=== PATIENT | female | born 1975 | race African-American/Black ===

== ENCOUNTER 2020-09-23 17:38 | Emergency (ER) | payer OTHER ==
[~2020-09-23] VITALS: Ht 157.5 cm; Wt 77.1 kg
[2020-09-23] MEDS ORDERED: LEXAPRO 10 MG T10 M2 PO (17:46)
[2020-09-23] MEDS ORDERED: HYDROCHLOROTHIA25 M2 PO (17:46)
[2020-09-23] MEDS ORDERED: ASA81BEC PO (17:46)
[2020-09-23 18:07] LABS: ABSOLUTE NEUTROPHILS 4.8 thou/uL (1.4-8.2); BASOPHILS 0.5 % (0.0-2.0); HEMATOCRIT 46.4 % (37.0-47.0); HEMOGLOBIN 15.6 gm/dL (12.0-15.0); LYMPHOCYTES 30.9 % (24.0-44.0); MCH 30.5 pg (26.0-34.0); MCHC 33.6 g/dL (28.0-37.0); MCV 90.9 fL (80.0-100.0); MONOCYTES 6.2 % (1.0-8.0); PLATELET COUNT 423 thou/uL (150-400); POLYS 61.4 % (36.0-66.0); RDW 15.8 % (10.5-14.5); WBC 7.8 thou/uL (4.0-11.0)
[2020-09-23 18:16] LABS: ALBUMIN 3.9 g/dL (3.4-5.0); CALCIUM 10.2 mg/dL (8.5-10.1); MAGNESIUM 1.5 mg/dL (1.8-2.4); TOTAL BILIRUBIN 0.5 mg/dL (0.2-1.0); TOTAL PROTEIN 8.3 g/dL (6.4-8.2)
[2020-09-23 18:22] LABS: POTASSIUM 2.8 mmol/L (3.5-5.1)
[2020-09-23 21:07] VITALS: BP 117/76
--- NOTE | 2020-09-24 07:17 | EKG ---
[place] [address] [address] [facility] [place] [address] ELECTROCARDIOGRAM REPORT Name: KASSANDRA POPE Palmer [facility] [id number] Admission: 09/23/20 Attend Phys: Discharge: 09/23/20 Date of : [birth year] Report #: [id number] [facility] ED Test Date: 2020-09-23 Test Time: 17:56:23 Pat Name: KASSANDRA POPE Department: Room: Gender: F Resource Economist: shreyas : 1975 Requested By: Erasto Muhammad Order Number: [id number] MD: Juan Jose De Oliveira Measurements Intervals [place] Rate: 101 P: 88 [place]: 122 QRS: 32 QRSD: 101 T: -46 QT: 459 QTc: 596 Interpretive Statements Sinus tachycardia Biatrial enlargement Borderline T wave abnormalities Prolonged QT interval No previous ECG available for comparison Electronically Signed On 09-24-2020 7:16:50 SKULL GRINDER by Juan Jose De Oliveira [email or web address] <ELECTRONICALLY SIGNED> By: Juan Jose De Oliveira MD, [facility] 09/24/20 0716 1756 1756 Juan Jose De Oliveira MD, FACC /EPI
== END 2020-09-23 21:08 | disposition home or self-care (01) ==
LOC: ER 17:38
PROVIDERS: Emergency Medicine
DX: F10.10 Alcohol abuse, uncomplicated (principal); E87.6 Hypokalemia; F17.210 Nicotine dependence, cigarettes, uncomplicated; Z79.899 Other long term (current) drug therapy; Z79.82 Long term (current) use of aspirin; Y90.0 Blood alcohol level of less than 20 mg/100 ml

== ENCOUNTER 2020-10-04 18:28 | Emergency (ER) | payer OTHER ==
[~2020-10-04] VITALS: Ht 157.5 cm; Wt 72.6 kg
[~2020-10-04 18:28] MED LIST: ASA81BEC PO; HYDROCHLOROTHIA25 M2 PO; LEXAPRO 10 MG T10 M2 PO
[2020-10-04 19:36] LABS: ABSOLUTE NEUTROPHILS 5.1 thou/uL (1.4-8.2); BASOPHILS 0.8 % (0.0-2.0); EOSINOPHILS 0.4 % (0.0-3.0); HEMATOCRIT 44.9 % (37.0-47.0); HEMOGLOBIN 14.5 gm/dL (12.0-15.0); LYMPHOCYTES 34.1 % (24.0-44.0); MCH 29.9 pg (26.0-34.0); MCHC 32.4 g/dL (28.0-37.0); MCV 92.3 fL (80.0-100.0); MONOCYTES 7.7 % (1.0-8.0); PLATELET COUNT 403 thou/uL (150-400); RBC 4.87 mil/uL (4.20-5.00); WBC 8.9 thou/uL (4.0-11.0)
[2020-10-04 19:38] LABS: URINE BILIRUBIN NEGATIVE (Negative); URINE BLOOD 1+ (Negative); URINE CLARITY CLEAR; URINE COLOR YELLOW; URINE GLUCOSE-RANDOM* NEGATIVE (Negative); URINE KETONES TRACE (Negative); URINE LEUKOCYTES-REFLEX NEGATIVE (Negative); URINE NITRITE-REFLEX NEGATIVE (Negative); URINE PROTEIN (DIPSTICK) NEGATIVE (Negative); URINE SPECIFIC GRAVITY 1.015 (1.005-1.035); URINE UROBILINOGEN 0.2 E.U./dl (0.2-1.0)
[2020-10-04 19:48] LABS: AMP/METHAMP Negative (Negative); BARBITURATES Negative (Negative); BENZODIAZEPINES Negative (Negative); COCAINE Negative (Negative); METHADONE Negative (Negative); OPIATES Negative (Negative); PCP Negative (Negative)
[2020-10-04 19:59] LABS: SQUAMOUS 0-3 Few /LPF (0-3); URINE WBC-REFLEX None Seen /HPF (0-5)
[2020-10-04 20:00] LABS: BACTERIA-REFLEX None Seen /HPF (None Seen); CASTS None Seen /LPF (None Seen); CRYSTALS None Seen /LPF (None Seen); URINE RBC 0-2 Rare /HPF (0-2)
[2020-10-04 20:06] LABS: ALBUMIN 3.5 g/dL (3.4-5.0); CALCIUM 9.7 mg/dL (8.5-10.1); CREATININE 0.9 mg/dL (0.6-1.0); MAGNESIUM 1.6 mg/dL (1.8-2.4); TOTAL BILIRUBIN 0.2 mg/dL (0.2-1.0); TOTAL PROTEIN 7.8 g/dL (6.4-8.2)
[2020-10-04 20:09] LABS: POTASSIUM 2.7 mmol/L (3.5-5.1)
[2020-10-04 23:12] VITALS: BP 121/74
--- NOTE | 2020-10-05 15:23 | EKG ---
[address] [place] [address] ELECTROCARDIOGRAM REPORT Name: KASSANDRA POPE Palmer Room #: [facility]#: [id number] Admission: 10/04/20 Attend Phys: Discharge: 10/04/20 Date of : [birth year] Report #: [id number] [facility] ED Test Date: 2020-10-04 Test Time: 20:42:53 Pat Name: KASSANDRA POPE Department: Room: Gender: F Superintendent Sanitation: KESHIA : 1975 Requested By: Erasto Muhammad Order Number: [id number] MD: Juan Jose De Oliveira Measurements Intervals [place] Rate: 99 P: 81 [place]: 132 QRS: 28 QRSD: 72 T: 26 QT: 365 QTc: 469 Interpretive Statements Sinus rhythm Probable left atrial enlargement Baseline wander in lead(s) V2 Compared to ECG 09/23/2020 17:56:23 Sinus tachycardia no longer present T-wave abnormality no longer present Prolonged QT interval no longer present Electronically Signed On 10-05-2020 15:23:02 STEAM STATION SUPERVISOR by Juan Jose De Oliveira [email or web address] <ELECTRONICALLY SIGNED> By: Juan Jose De Oliveira MD, [facility] 10/05/20 1523 41 41 Juan Jose De Oliveira MD, [facility] /EPI
== END 2020-10-04 23:00 | disposition home or self-care (01) ==
LOC: ER 18:28
PROVIDERS: Emergency Medicine
DX: F10.139 Alcohol abuse with withdrawal, unspecified (principal); E87.6 Hypokalemia; E83.42 Hypomagnesemia; I10 Essential (primary) hypertension; F41.9 Anxiety disorder, unspecified; F17.210 Nicotine dependence, cigarettes, uncomplicated; Z79.899 Other long term (current) drug therapy; Z79.82 Long term (current) use of aspirin; Y90.0 Blood alcohol level of less than 20 mg/100 ml

== ENCOUNTER 2020-10-14 11:21 | Emergency (ER) | payer OTHER ==
[~2020-10-14] VITALS: Ht 157.5 cm; Wt 72.1 kg
[2020-10-14] MEDS ORDERED: AMLODIPINE BESY10 MG PO (11:34)
[2020-10-14] MEDS ORDERED: REVIA 50 MG TAB50 MG PO (11:35)
[2020-10-14] MEDS ORDERED: POTASSIUM20 PO (11:36)
[2020-10-14 11:57] LABS: ABSOLUTE NEUTROPHILS 3.7 thou/uL (1.4-8.2); BASOPHILS 1.4 % (0.0-2.0); EOSINOPHILS 1.3 % (0.0-3.0); HEMATOCRIT 41.9 % (37.0-47.0); HEMOGLOBIN 13.4 gm/dL (12.0-15.0); LYMPHOCYTES 35.5 % (24.0-44.0); MCH 29.2 pg (26.0-34.0); MCV 91.4 fL (80.0-100.0); MONOCYTES 8.8 % (1.0-8.0); PLATELET COUNT 386 thou/uL (150-400); RBC 4.59 mil/uL (4.20-5.00); RDW 15.3 % (10.5-14.5); WBC 6.9 thou/uL (4.0-11.0)
[2020-10-14 12:00] LABS: CALCIUM 9.3 mg/dL (8.5-10.1); CREATININE 0.6 mg/dL (0.6-1.0); POTASSIUM 3.7 mmol/L (3.5-5.1)
[2020-10-14 12:08] LABS: ALBUMIN 3.2 g/dL (3.4-5.0); TOTAL BILIRUBIN 0.2 mg/dL (0.2-1.0); TOTAL PROTEIN 7.3 g/dL (6.4-8.2)
[2020-10-14 13:48] VITALS: BP 121/89
== END 2020-10-14 14:04 | disposition home or self-care (01) ==
LOC: ER 11:21
PROVIDERS: Emergency Medicine
DX: F10.20 Alcohol dependence, uncomplicated (principal); F41.9 Anxiety disorder, unspecified; E66.9 Obesity, unspecified; F17.210 Nicotine dependence, cigarettes, uncomplicated; Z79.899 Other long term (current) drug therapy; Z79.82 Long term (current) use of aspirin; Z68.29 Body mass index [BMI] 29.0-29.9, adult; Y90.0 Blood alcohol level of less than 20 mg/100 ml

== ENCOUNTER 2020-10-27 19:46 | Emergency (ER) | payer OTHER ==
[~2020-10-27] VITALS: Ht 157.5 cm; Wt 74.8 kg
[~2020-10-27 19:46] MED LIST changes: +AMLODIPINE BESY10 MG PO; +POTASSIUM20 PO; +REVIA 50 MG TAB50 MG PO
[2020-10-27] MEDS ORDERED: HYDROCHLOROTHIA25 M2 PO (20:18)
[2020-10-27 20:43] LABS: HEMATOCRIT 38.8 % (37.0-47.0); HEMOGLOBIN 13.4 gm/dL (12.0-15.0); MCH 30.7 pg (26.0-34.0); MCHC 34.5 g/dL (28.0-37.0); MCV 89.1 fL (80.0-100.0); RBC 4.35 mil/uL (4.20-5.00); RDW 14.9 % (10.5-14.5); WBC 7.1 thou/uL (4.0-11.0)
[2020-10-27 20:49] LABS: CALCIUM 8.7 mg/dL (8.5-10.1); CREATININE 0.7 mg/dL (0.6-1.0); POTASSIUM 3.9 mmol/L (3.5-5.1)
[2020-10-27 20:55] LABS: ALBUMIN 3.3 g/dL (3.4-5.0); MAGNESIUM 1.8 mg/dL (1.8-2.4); TOTAL BILIRUBIN 0.3 mg/dL (0.2-1.0); TOTAL PROTEIN 7.3 g/dL (6.4-8.2)
[2020-10-27 21:16] VITALS: BP 137/81
--- NOTE | 2020-10-28 07:26 | EKG ---
[place] [address] [facility] [place] [address] ELECTROCARDIOGRAM REPORT Name: KASSANDRA POPE Palmer Room #: [facility]#: [id number] Admission: 10/27/20 Attend Phys: Discharge: 10/27/20 Date of : [birth year] Report #: [id number] [facility] ED Test Date: 2020-10-27 Test Time: 20:00:53 Pat Name: KASSANDRA POPE Department: Room: Gender: F Maintenance Mechanic Millwright: leonides : 1975 Requested By: Beth Ramírez Order Number: [id number] MD: Juan Jose De Oliveira Measurements Intervals [place] Rate: 108 P: 79 [place]: 119 QRS: 54 QRSD: 70 T: -8 QT: 343 QTc: 460 Interpretive Statements Sinus tachycardia Ventricular premature complex Aberrant complex Right atrial enlargement Borderline T abnormalities, inferior leads Compared to ECG 10/04/2020 20:42:53 Ventricular premature complex(es) now present Aberrant conduction of supraventricular beat(s) now present T-wave abnormality now present Sinus rhythm no longer present Electronically Signed On 10-28-2020 7:26:10 AREA DIRECTOR by Juan Jose De Oliveira [email or web address] <ELECTRONICALLY SIGNED> By: Juan Jose De Oliveira MD, FACC 10/28/20 0726 99 99 Juan Jose De Oliveira MD, FAC /EPI
== END 2020-10-27 21:25 | disposition home or self-care (01) ==
LOC: ER 19:46
PROVIDERS: Physician Assistant
DX: F10.139 Alcohol abuse with withdrawal, unspecified (principal); F17.210 Nicotine dependence, cigarettes, uncomplicated; Z79.82 Long term (current) use of aspirin; Z79.899 Other long term (current) drug therapy; Y90.0 Blood alcohol level of less than 20 mg/100 ml

== ENCOUNTER 2020-11-28 22:52 | Emergency (ER) | payer OTHER ==
[~2020-11-28] VITALS: Ht 157.5 cm; Wt 74.8 kg
[2020-11-28 23:27] LABS: ABSOLUTE NEUTROPHILS 3.9 thou/uL (1.4-8.2); BASOPHILS 1.5 % (0.0-2.0); EOSINOPHILS 0.8 % (0.0-3.0); HEMOGLOBIN 13.6 gm/dL (12.0-15.0); LYMPHOCYTES 38.1 % (24.0-44.0); MCH 29.4 pg (26.0-34.0); MCHC 33.1 g/dL (28.0-37.0); MCV 88.8 fL (80.0-100.0); MONOCYTES 8.3 % (1.0-8.0); PLATELET COUNT 498 thou/uL (150-400); POLYS 51.3 % (36.0-66.0); RBC 4.62 mil/uL (4.20-5.00); RDW 15.1 % (10.5-14.5); WBC 7.7 thou/uL (4.0-11.0)
[2020-11-28 23:35] LABS: ANION GAP 10 mmol/L (7-16); BUN 9 mg/dL (7-18); CALCIUM 8.4 mg/dL (8.5-10.1); CHLORIDE 103 mmol/L (98-107); CO2 27 mmol/L (21-32); CREATININE 1.1 mg/dL (0.6-1.0); GLUCOSE 100 mg/dL (74-106); POTASSIUM 3.5 mmol/L (3.5-5.1); SODIUM 140 mmol/L (136-145)
[2020-11-28 23:45] LABS: ALBUMIN 3.2 g/dL (3.4-5.0); MAGNESIUM 1.6 mg/dL (1.8-2.4); SGOT 18 U/L (15-37); SGPT 19 U/L (30-65); TOTAL BILIRUBIN 0.3 mg/dL (0.2-1.0); TOTAL PROTEIN 7.3 g/dL (6.4-8.2); TROPONIN-I <0.06 ng/mL (<0.06)
[2020-11-29 05:04] VITALS: BP 127/84
--- NOTE | 2020-11-29 07:21 | EKG ---
[address] [place] [address] ELECTROCARDIOGRAM REPORT Name: KASSANDRA POPE Palmer Room #: [facility]#: [id number] Admission: 11/28/20 Attend Phys: Discharge: 11/29/20 Date of : [birth year] Report #: [id number] [facility] ED Test Date: 2020-11-28 Test Time: 23:03:49 Pat Name: KASSANDRA POPE Department: Room: Gender: F Director Of Development: [email or web address] : 1975 Requested By: Shelia Chappell Order Number: [id number] MD: Juan Jose De Oliveira Measurements Intervals [place] Rate: 97 P: 76 DE: 133 QRS: 33 QRSD: 68 T: 29 QT: 363 QTc: 461 Interpretive Statements Sinus rhythm Right atrial enlargement Compared to ECG 10/27/2020 20:00:53 Sinus tachycardia no longer present Ventricular premature complex(es) no longer present Aberrant conduction of supraventricular beat(s) no longer present T-wave abnormality no longer present Electronically Signed On 11-29-2020 7:21:21 CDT by Juan Jose De Oliveira [email or web address] <ELECTRONICALLY SIGNED> By: Juan Jose De Oliveira MD, FACC 11/29/20 0721 02 02 Juan Jose De Oliveira MD, FAC /EPI
== END 2020-11-29 05:06 | disposition home or self-care (01) ==
LOC: ER 22:52
PROVIDERS: Emergency Medicine
DX: R00.2 Palpitations (principal); E86.0 Dehydration; F10.10 Alcohol abuse, uncomplicated; F17.210 Nicotine dependence, cigarettes, uncomplicated; Z79.82 Long term (current) use of aspirin; Z79.899 Other long term (current) drug therapy; Y90.0 Blood alcohol level of less than 20 mg/100 ml

== ENCOUNTER 2020-12-15 06:40 | Emergency (ER) | payer OTHER ==
[~2020-12-15] VITALS: Ht 157.5 cm; Wt 76.2 kg
[2020-12-15 06:47] VITALS: BP 138/87
[2020-12-15] MEDS ORDERED: LEXAPRO20 MG PO (06:55)
== END 2020-12-15 07:46 | disposition home or self-care (01) ==
LOC: ER 06:40
DX: F41.9 Anxiety disorder, unspecified (principal); I10 Essential (primary) hypertension; F17.210 Nicotine dependence, cigarettes, uncomplicated; Z76.0 Encounter for issue of repeat prescription; Z79.899 Other long term (current) drug therapy

== ENCOUNTER 2020-12-29 22:57 | Emergency (ER) | payer OTHER ==
[~2020-12-29] VITALS: Ht 157.5 cm; Wt 76.2 kg
[~2020-12-29 22:57] MED LIST changes: +LEXAPRO20 MG PO
[2020-12-29 23:38] LABS: ABSOLUTE NEUTROPHILS 3.8 thou/uL (1.4-8.2); BASOPHILS 1.4 % (0.0-2.0); EOSINOPHILS 0.9 % (0.0-3.0); HEMATOCRIT 43.1 % (37.0-47.0); HEMOGLOBIN 14.9 gm/dL (12.0-15.0); LYMPHOCYTES 42.1 % (24.0-44.0); MCH 30.6 pg (26.0-34.0); MCHC 34.5 g/dL (28.0-37.0); MCV 88.6 fL (80.0-100.0); PLATELET COUNT 423 thou/uL (150-400); POLYS 48.6 % (36.0-66.0); RBC 4.87 mil/uL (4.20-5.00); RDW 15.2 % (10.5-14.5); WBC 7.9 thou/uL (4.0-11.0)
[2020-12-29 23:39] LABS: URINE BILIRUBIN NEGATIVE (Negative); URINE BLOOD 3+ (Negative); URINE CLARITY CLEAR; URINE COLOR YELLOW; URINE GLUCOSE-RANDOM* NEGATIVE (Negative); URINE KETONES 1+ (Negative); URINE LEUKOCYTES-REFLEX NEGATIVE (Negative); URINE NITRITE-REFLEX NEGATIVE (Negative); URINE PROTEIN (DIPSTICK) NEGATIVE (Negative); URINE SPECIFIC GRAVITY 1.025 (1.005-1.035)
[2020-12-29 23:41] LABS: CALCIUM 9.3 mg/dL (8.5-10.1); CREATININE 0.7 mg/dL (0.6-1.0); POTASSIUM 3.3 mmol/L (3.5-5.1)
[2020-12-29 23:48] LABS: ALBUMIN 3.5 g/dL (3.4-5.0); TOTAL BILIRUBIN 0.4 mg/dL (0.2-1.0); TOTAL PROTEIN 8.1 g/dL (6.4-8.2)
[2020-12-30 00:33] LABS: SQUAMOUS >10 Many /LPF (0-3); URINE RBC 3-10 Few /HPF (0-2); URINE WBC-REFLEX 0-5 Rare /HPF (0-5)
[2020-12-30 00:34] LABS: BACTERIA-REFLEX 1-9 Few /HPF (None Seen); CASTS None Seen /LPF (None Seen); CRYSTALS None Seen /LPF (None Seen); MUCUS 4-6 Moderate strn/LPF (None Seen)
[2020-12-30] MEDS ORDERED: ZOFRAN ODT4 MG PO (01:45)
[2020-12-30 01:59] VITALS: BP 141/68
--- NOTE | 2020-12-30 07:07 | EKG ---
[place] [address] [address] [facility] [place] [address] ELECTROCARDIOGRAM REPORT Name: KASSANDRA POPE Palmer Room #: [facility]#: [id number] Admission: 12/29/20 Attend Phys: Discharge: 12/30/20 Date of : [birth year] Report #: [id number] [facility] ED Test Date: 2020-12-29 Test Time: 23:18:54 Pat Name: KASSANDRA POPE Department: Room: Gender: F Inventory Worker: sourav : 1975 Requested By: Terrence Gorman Order Number: [id number] MD: Juan Jose De Oliveira Measurements Intervals [place] Rate: 85 P: 70 [place]: 122 QRS: 51 QRSD: 105 T: 52 QT: 381 QTc: 453 Interpretive Statements Sinus rhythm Biatrial enlargement Compared to ECG 11/28/2020 23:03:49 NO sifgnificant change Electronically Signed On 12-30-2020 7:07:15 CDT by Juan Jose De Oliveira [email or web address] <ELECTRONICALLY SIGNED> By: Juan Jose De Oliveira MD, [facility] 12/30/20 0707 2318 2318 Juan Jose De Oliveira MD, FACC /EPI
== END 2020-12-30 02:01 | disposition home or self-care (01) ==
LOC: ER 22:57
PROVIDERS: Emergency Medicine
DX: F10.239 Alcohol dependence with withdrawal, unspecified (principal); R11.2 Nausea with vomiting, unspecified; I10 Essential (primary) hypertension; F17.210 Nicotine dependence, cigarettes, uncomplicated; Z79.82 Long term (current) use of aspirin; Z79.899 Other long term (current) drug therapy; Y90.9 Presence of alcohol in blood, level not specified

== ENCOUNTER 2021-01-01 21:16 | Emergency (ER) | payer OTHER ==
[~2021-01-01] VITALS: Ht 157.5 cm; Wt 76.2 kg
[~2021-01-01 21:16] MED LIST changes: +ZOFRAN ODT4 MG PO
[2021-01-01 21:23] VITALS: BP 142/97
--- NOTE | 2021-01-04 09:20 | EKG ---
[place] [address] [facility] [place] [address] ELECTROCARDIOGRAM REPORT Name: CRISTELA POPE Palmer Room #: [facility]#: [id number] Admission: 01/01/21 Attend Phys: Discharge: 01/01/21 Date of : [birth year] Report #: [id number] [facility] ED Test Date: 2021-01-01 Test Time: 21:22:17 Pat Name: CRISTELA POPE Department: Room: Gender: F Gliding Pilot Instructor: maricel : 1975 Requested By: Cristela Solorzano Order Number: [id number] MD: Vince Garica Measurements Intervals [place] Rate: 104 P: 85 NE: 115 QRS: 47 QRSD: 66 T: 25 QT: 322 QTc: 424 Interpretive Statements Sinus tachycardia Biatrial enlargement Nonspecific ST segment abnormality Compared to ECG 12/29/2020 23:18:54 No significant change was found Electronically Signed On 01-04-2021 9:19:46 CDT by Vince Garcia [email or web address] <ELECTRONICALLY SIGNED> By: Vince Garcia MD, [facility] 01/04/21918 21 21 Vince Garcia MD, FACC /EPI
== END 2021-01-01 22:20 | disposition home or self-care (01) ==
LOC: ER 21:16
DX: F41.9 Anxiety disorder, unspecified (principal); Z76.0 Encounter for issue of repeat prescription; I10 Essential (primary) hypertension; F17.210 Nicotine dependence, cigarettes, uncomplicated; Z79.899 Other long term (current) drug therapy; Z79.82 Long term (current) use of aspirin

== ENCOUNTER 2021-01-06 14:43 | Emergency (ER) | payer OTHER ==
[2021-01-06 15:11] LABS: URINE BILIRUBIN NEGATIVE (Negative); URINE BLOOD 3+ (Negative); URINE CLARITY CLEAR; URINE COLOR YELLOW; URINE GLUCOSE-RANDOM* NEGATIVE (Negative); URINE KETONES NEGATIVE (Negative); URINE LEUKOCYTES-REFLEX TRACE (Negative); URINE NITRITE-REFLEX NEGATIVE (Negative); URINE PROTEIN (DIPSTICK) NEGATIVE (Negative); URINE SPECIFIC GRAVITY 1.025 (1.005-1.035)
[2021-01-06 15:17] LABS: ABSOLUTE NEUTROPHILS 2.9 thou/uL (1.4-8.2); BASOPHILS 1.2 % (0.0-2.0); EOSINOPHILS 0.5 % (0.0-3.0); HEMATOCRIT 41.5 % (37.0-47.0); LYMPHOCYTES 49.5 % (24.0-44.0); MCH 29.8 pg (26.0-34.0); MCHC 33.8 g/dL (28.0-37.0); MCV 88.1 fL (80.0-100.0); PLATELET COUNT 434 thou/uL (150-400); POLYS 39.8 % (36.0-66.0); RBC 4.71 mil/uL (4.20-5.00); RDW 15.6 % (10.5-14.5); WBC 7.4 thou/uL (4.0-11.0)
[2021-01-06 15:22] LABS: AMP/METHAMP Negative (Negative); BARBITURATES Negative (Negative); BENZODIAZEPINES Negative (Negative); COCAINE Negative (Negative); METHADONE Negative (Negative); OPIATES Negative (Negative); PCP Negative (Negative)
[2021-01-06 15:23] LABS: SQUAMOUS >10 Many /LPF (0-3)
[2021-01-06 15:24] LABS: BACTERIA-REFLEX 1-9 Few /HPF (None Seen); CASTS None Seen /LPF (None Seen); CRYSTALS None Seen /LPF (None Seen); URINE RBC 3-10 Few /HPF (0-2); URINE WBC-REFLEX 0-5 Rare /HPF (0-5)
[2021-01-06 15:24] LABS: CALCIUM 8.8 mg/dL (8.5-10.1); CREATININE 0.9 mg/dL (0.6-1.0); POTASSIUM 3.2 mmol/L (3.5-5.1)
[2021-01-06] MEDS ORDERED: ONDANSETRON HCL4 M2 PO (15:41)
[2021-01-06] MEDS ORDERED: ATIVAN0.5 M1 PO (15:41)
[2021-01-06 16:50] VITALS: BP 150/98
--- NOTE | 2021-01-07 07:04 | EKG ---
[address] [address] ELECTROCARDIOGRAM REPORT Name: AKSSANDRA POPE Room #: [facility]#: [id number] Admission: 01/06/21 Attend Phys: Discharge: 01/06/21 Date of : [birth year] Report #: [id number] [facility] ED Test Date: 2021-01-06 Test Time: 14:53:13 Pat Name: KASSANDRA POPE Department: Room: Gender: F Housekeeper Head: KESHIA : 1975 Requested By: Ramos Grover Order Number: [id number] MD: Juan Jose De Oliveira Measurements Intervals [place] Rate: 117 P: 74 DC: 114 QRS: 49 QRSD: 70 T: 4 QT: 326 QTc: 455 Interpretive Statements Sinus tachycardia Probable left atrial enlargement Compared to ECG 01/01/2021 21:22:17 ST (T wave) deviation no longer present Electronically Signed On 01-07-2021 7:04:37 CDT by Juan Jose De Oliveira [email or web address] <ELECTRONICALLY SIGNED> By: Juan Jose De Oliveira MD, [facility] 01/07/21 0704 1453 52 Juan Jose De Oliveira MD, FACC /EPI
== END 2021-01-06 16:51 | disposition home or self-care (01) ==
LOC: ER 14:43
PROVIDERS: Nurse Practitioner
DX: F10.129 Alcohol abuse with intoxication, unspecified (principal); I10 Essential (primary) hypertension; E66.9 Obesity, unspecified; F17.210 Nicotine dependence, cigarettes, uncomplicated; Z79.82 Long term (current) use of aspirin; Z79.899 Other long term (current) drug therapy; Y90.9 Presence of alcohol in blood, level not specified

== ENCOUNTER 2021-01-10 05:12 | Emergency (ER) | payer OTHER ==
[~2021-01-10] VITALS: Ht 157.5 cm; Wt 76.2 kg
[~2021-01-10 05:12] MED LIST changes: +ATIVAN0.5 M1 PO; +ONDANSETRON HCL4 M2 PO
[2021-01-10 05:50] LABS: ABSOLUTE NEUTROPHILS 2.5 thou/uL (1.4-8.2); BASOPHILS 1.7 % (0.0-2.0); EOSINOPHILS 0.5 % (0.0-3.0); HEMATOCRIT 42.7 % (37.0-47.0); HEMOGLOBIN 13.9 gm/dL (12.0-15.0); LYMPHOCYTES 48.9 % (24.0-44.0); MCH 28.9 pg (26.0-34.0); MCHC 32.6 g/dL (28.0-37.0); MCV 88.5 fL (80.0-100.0); MONOCYTES 7.9 % (1.0-8.0); PLATELET COUNT 393 thou/uL (150-400); RBC 4.82 mil/uL (4.20-5.00); RDW 15.2 % (10.5-14.5); WBC 6.1 thou/uL (4.0-11.0)
[2021-01-10 06:10] LABS: ALBUMIN 3.5 g/dL (3.4-5.0); AMYLASE 46 U/L (25-115); ANION GAP 13 mmol/L (7-16); BUN 7 mg/dL (7-18); CALCIUM 8.7 mg/dL (8.5-10.1); CHLORIDE 102 mmol/L (98-107); CO2 27 mmol/L (21-32); CREATININE 0.7 mg/dL (0.6-1.0); DIRECT BILIRUBIN < 0.1 mg/dL (<0.1-0.2); GLUCOSE 99 mg/dL (74-106); LIPASE 86 U/L (73-393); MAGNESIUM 1.8 mg/dL (1.8-2.4); PHOSPHORUS 2.7 mg/dL (2.5-4.9); SGOT 23 U/L (15-37); SGPT 29 U/L (30-65); SODIUM 142 mmol/L (136-145); TOTAL BILIRUBIN 0.3 mg/dL (0.2-1.0); TOTAL PROTEIN 7.8 g/dL (6.4-8.2); TROPONIN-I <0.06 ng/mL (<0.06)
[2021-01-10 06:13] LABS: POTASSIUM 2.9 mmol/L (3.5-5.1)
[2021-01-10 06:16] LABS: URINE BILIRUBIN NEGATIVE (Negative); URINE BLOOD 3+ (Negative); URINE CLARITY CLEAR; URINE COLOR YELLOW; URINE GLUCOSE-RANDOM* NEGATIVE (Negative); URINE KETONES TRACE (Negative); URINE LEUKOCYTES-REFLEX NEGATIVE (Negative); URINE NITRITE-REFLEX NEGATIVE (Negative); URINE PROTEIN (DIPSTICK) TRACE (Negative); URINE SPECIFIC GRAVITY 1.015 (1.005-1.035)
[2021-01-10 06:24] LABS: AMP/METHAMP Negative (Negative); BARBITURATES Negative (Negative); BENZODIAZEPINES Negative (Negative); COCAINE Negative (Negative); METHADONE Negative (Negative); OPIATES Negative (Negative); PCP Negative (Negative)
[2021-01-10 06:35] LABS: MUCUS 0-3 Light strn/LPF (None Seen); SQUAMOUS >10 Many /LPF (0-3)
[2021-01-10 06:36] LABS: CASTS None Seen /LPF (None Seen); URINE RBC 3-10 Few /HPF (NONE SEEN); URINE WBC-REFLEX None Seen /HPF (0-5)
[2021-01-10 06:37] LABS: CRYSTALS None Seen /LPF (None Seen)
[2021-01-10] MEDS ORDERED: ZOFRAN ODT4 MG PO (06:58)
--- NOTE | 2021-01-10 07:04 | EKG ---
[address] [facility] [place] [address] ELECTROCARDIOGRAM REPORT Name: KASSANDRA POPE Palmer Room #: [facility]#: [id number] Admission: 01/10/21 Attend Phys: Discharge: Date of : [birth year] Report #: [id number] [facility] ED Test Date: 2021-01-10 Test Time: 05:44:08 Pat Name: KASSANDRA POPE Department: Room: Gender: F Surg Nurse: simone : 1975 Requested By: Abhijeet Witt Order Number: [id number] MD: Juan Jose De Oliveira Measurements Intervals [place] Rate: 86 P: 84 [place]: 119 QRS: 27 QRSD: 70 T: 10 QT: 385 QTc: 461 Interpretive Statements Sinus rhythm Borderline short [place] interval Probable left atrial enlargement Compared to ECG 01/06/2021 14:53:13 Sinus tachycardia no longer present Electronically Signed On 01-10-2021 7:04:05 CDT by Juan Jose De Oliveira [email or web address] <ELECTRONICALLY SIGNED> By: Juan Jose De Oliveira MD, [facility] 01/10/21 0704 0544 0544 Juan Jose De Oliveira MD, FACC /EPI
[2021-01-10 07:16] VITALS: BP 137/91
== END 2021-01-10 07:16 | disposition home or self-care (01) ==
LOC: ER 05:12
PROVIDERS: Emergency Medicine
DX: F10.129 Alcohol abuse with intoxication, unspecified (principal); R11.2 Nausea with vomiting, unspecified; E87.6 Hypokalemia; I10 Essential (primary) hypertension; F17.210 Nicotine dependence, cigarettes, uncomplicated; Z79.899 Other long term (current) drug therapy; Z79.82 Long term (current) use of aspirin; Y90.9 Presence of alcohol in blood, level not specified

== ENCOUNTER 2021-01-11 11:45 | Emergency (ER) | payer OTHER ==
[~2021-01-11] VITALS: Ht 157.5 cm; Wt 76.2 kg
[2021-01-11 12:05] LABS: BASOPHILS 1.1 % (0.0-2.0); EOSINOPHILS 0.5 % (0.0-3.0); HEMATOCRIT 41.9 % (37.0-47.0); HEMOGLOBIN 14.3 gm/dL (12.0-15.0); LYMPHOCYTES 32.2 % (24.0-44.0); MCH 29.7 pg (26.0-34.0); MCV 87.4 fL (80.0-100.0); PLATELET COUNT 393 thou/uL (150-400); POLYS 60.2 % (36.0-66.0); RBC 4.79 mil/uL (4.20-5.00); RDW 15.5 % (10.5-14.5); WBC 6.6 thou/uL (4.0-11.0)
[2021-01-11 12:20] LABS: ANION GAP 12 mmol/L (7-16); BUN 7 mg/dL (7-18); CALCIUM 9.2 mg/dL (8.5-10.1); CHLORIDE 103 mmol/L (98-107); CO2 27 mmol/L (21-32); CREATININE 0.9 mg/dL (0.6-1.0); GLUCOSE 127 mg/dL (74-106); POTASSIUM 3.6 mmol/L (3.5-5.1); SODIUM 142 mmol/L (136-145)
[2021-01-11 12:30] LABS: ALBUMIN 3.5 g/dL (3.4-5.0); MAGNESIUM 1.7 mg/dL (1.8-2.4); SGOT 22 U/L (15-37); SGPT 26 U/L (30-65); TOTAL BILIRUBIN 0.3 mg/dL (0.2-1.0); TOTAL PROTEIN 7.8 g/dL (6.4-8.2); TROPONIN-I <0.06 ng/mL (<0.06)
[2021-01-11 13:01] VITALS: BP 138/84
--- NOTE | 2021-01-11 16:05 | EKG ---
[place] [address] [facility] [place] [address] ELECTROCARDIOGRAM REPORT Name: KASSANDRA POPE Room #[facility] [id number] Admission: 01/11/21 Attend Phys: Discharge: 01/11/21 Date of : [birth year] Report #: [id number] [facility] ED Test Date: 2021-01-11 Test Time: 11:52:09 Pat Name: KASSANDRA POPE Department: Room: Gender: F Target Developer: JJessica : 1975 Requested By: Binu Mcdowell Order Number: [id number] MD: Vince Garcia Measurements Intervals [place] Rate: 107 P: 74 [place]: 108 QRS: 24 QRSD: 69 T: 9 QT: 327 QTc: 437 Interpretive Statements Sinus tachycardia Otherwise no significant abnormality Compared to ECG 01/10/2021 05:44:08 Heart rate is increased Electronically Signed On 01-11-2021 16:05:06 CDT by Vince Garcia [email or web address] <ELECTRONICALLY SIGNED> By: Vince Garcia MD, [facility] 01/11/21 1605 1152 1152 Vince Garcia MD, FACC /EPI
== END 2021-01-11 13:01 | disposition home or self-care (01) ==
LOC: ER 11:45
PROVIDERS: Emergency Medicine
DX: F10.239 Alcohol dependence with withdrawal, unspecified (principal); R42 Dizziness and giddiness; I10 Essential (primary) hypertension; F17.210 Nicotine dependence, cigarettes, uncomplicated; Z79.82 Long term (current) use of aspirin; Z79.899 Other long term (current) drug therapy; Y90.9 Presence of alcohol in blood, level not specified

== ENCOUNTER 2021-01-14 05:21 | Emergency (ER) | payer OTHER ==
[~2021-01-14] VITALS: Ht 157.5 cm; Wt 71.2 kg
[2021-01-14 05:46] LABS: ABSOLUTE NEUTROPHILS 3.3 thou/uL (1.4-8.2); BASOPHILS 0.8 % (0.0-2.0); EOSINOPHILS 0.1 % (0.0-3.0); HEMATOCRIT 42.7 % (37.0-47.0); HEMOGLOBIN 14.1 gm/dL (12.0-15.0); LYMPHOCYTES 32.3 % (24.0-44.0); MCH 28.9 pg (26.0-34.0); MCV 87.7 fL (80.0-100.0); MONOCYTES 7.2 % (1.0-8.0); PLATELET COUNT 393 thou/uL (150-400); POLYS 59.6 % (36.0-66.0); RBC 4.87 mil/uL (4.20-5.00); RDW 15.7 % (10.5-14.5); WBC 5.6 thou/uL (4.0-11.0)
[2021-01-14 05:50] LABS: CALCIUM 8.9 mg/dL (8.5-10.1); CREATININE 0.7 mg/dL (0.6-1.0); POTASSIUM 3.3 mmol/L (3.5-5.1)
[2021-01-14 05:56] LABS: ALBUMIN 3.6 g/dL (3.4-5.0); TOTAL BILIRUBIN 0.6 mg/dL (0.2-1.0); TOTAL PROTEIN 7.7 g/dL (6.4-8.2)
[2021-01-14 06:11] LABS: URINE BILIRUBIN NEGATIVE (Negative); URINE BLOOD 3+ (Negative); URINE COLOR YELLOW; URINE GLUCOSE-RANDOM* NEGATIVE (Negative); URINE KETONES 1+ (Negative); URINE LEUKOCYTES-REFLEX NEGATIVE (Negative); URINE NITRITE-REFLEX NEGATIVE (Negative); URINE PROTEIN (DIPSTICK) 1+ (Negative); URINE SPECIFIC GRAVITY 1.025 (1.005-1.035); URINE UROBILINOGEN 0.2 E.U./dl (0.2-1.0)
[2021-01-14 06:15] LABS: URINE CLARITY SL HAZY
[2021-01-14] MEDS ORDERED: HYDROCHLOROTHIA25 M1 PO (06:34)
[2021-01-14 06:35] LABS: CASTS None Seen /LPF (None Seen); MUCUS 4-6 Moderate strn/LPF (None Seen); SQUAMOUS >10 Many /LPF (0-3)
[2021-01-14 06:36] LABS: URINE RBC 1-2 Rare /HPF (NONE SEEN); URINE WBC-REFLEX 0-5 Rare /HPF (0-5)
[2021-01-14 06:37] LABS: BACTERIA-REFLEX 1-9 Few /HPF (None Seen); CRYSTALS None Seen /LPF (None Seen)
--- NOTE | 2021-01-14 07:04 | EKG ---
[place] [address] [facility] [place] [address] ELECTROCARDIOGRAM REPORT Name: KASSANDRA POPE Palmer Room #: [facility]#: [id number] Admission: 01/14/21 Attend Phys: Discharge: Date of : [birth year] Report #: [id number] [facility] ED Test Date: 2021-01-14 Test Time: 05:55:18 Pat Name: KASSANDRA POPE Department: Room: Gender: F Printed Circuit Board Assembly Repairer: melvin : 1975 Requested By: Raul Hendrickson Order Number: [id number] MD: Juan Jose De Oliveira Measurements Intervals [place] Rate: 92 P: 74 [place]: 115 QRS: 36 QRSD: 73 T: 30 QT: 380 QTc: 471 Interpretive Statements Sinus rhythm Borderline short [place] interval Consider right atrial enlargement Compared to ECG 01/11/2021 11:52:09 Sinus tachycardia no longer present Electronically Signed On 01-14-2021 7:03:54 CDT by Juan Jose De Oliveira [email or web address] <ELECTRONICALLY SIGNED> By: Juan Jose De Oliveira MD, [facility] 01/14/21 0703 0555 0555 Juan Jose De Oliveira MD, FACC /EPI
[2021-01-14 07:16] VITALS: BP 148/97
== END 2021-01-14 07:18 | disposition still patient (30) ==
LOC: ER 05:21
PROVIDERS: Emergency Medicine
DX: F10.10 Alcohol abuse, uncomplicated (principal); R11.2 Nausea with vomiting, unspecified; I10 Essential (primary) hypertension; F17.210 Nicotine dependence, cigarettes, uncomplicated

== ENCOUNTER 2021-01-17 13:34 | Emergency (ER) | payer OTHER ==
[~2021-01-17 13:34] MED LIST changes: +HYDROCHLOROTHIA25 M1 PO
[2021-01-17 15:47] LABS: CALCIUM 9.3 mg/dL (8.5-10.1); CREATININE 0.8 mg/dL (0.6-1.0); POTASSIUM 3.3 mmol/L (3.5-5.1)
[2021-01-17 15:48] LABS: ABSOLUTE NEUTROPHILS 3.8 thou/uL (1.4-8.2); BASOPHILS 0.9 % (0.0-2.0); EOSINOPHILS 1.1 % (0.0-3.0); HEMATOCRIT 42.4 % (37.0-47.0); HEMOGLOBIN 14.2 gm/dL (12.0-15.0); LYMPHOCYTES 30.9 % (24.0-44.0); MCH 29.7 pg (26.0-34.0); MCHC 33.5 g/dL (28.0-37.0); MCV 88.5 fL (80.0-100.0); MONOCYTES 6.4 % (1.0-8.0); PLATELET COUNT 326 thou/uL (150-400); POLYS 60.7 % (36.0-66.0); RBC 4.79 mil/uL (4.20-5.00); RDW 15.2 % (10.5-14.5); WBC 6.3 thou/uL (4.0-11.0)
[2021-01-17 15:53] LABS: ALBUMIN 3.5 g/dL (3.4-5.0); DIRECT BILIRUBIN 0.1 mg/dL (<0.1-0.2); TOTAL BILIRUBIN 0.5 mg/dL (0.2-1.0); TOTAL PROTEIN 7.5 g/dL (6.4-8.2)
[2021-01-17 16:02] LABS: APTT 25.6 Seconds (24.5-32.8); INR 1.02; PROTIME 11.1 Seconds (10.5-12.1)
[2021-01-17 17:27] VITALS: BP 123/91
== END 2021-01-17 17:30 | disposition home or self-care (01) ==
LOC: ER 13:34
PROVIDERS: Emergency Medicine
DX: F10.10 Alcohol abuse, uncomplicated (principal); I10 Essential (primary) hypertension; F17.210 Nicotine dependence, cigarettes, uncomplicated

== ENCOUNTER 2021-03-16 07:07 | Emergency (ER) | payer OTHER ==
[~2021-03-16] VITALS: Ht 157.5 cm; Wt 72.6 kg
[2021-03-16 08:07] LABS: ABSOLUTE NEUTROPHILS 3.2 thou/uL (1.4-8.2); BASOPHILS 1.2 % (0.0-2.0); HEMOGLOBIN 13.9 gm/dL (12.0-15.0); LYMPHOCYTES 34.3 % (24.0-44.0); MCH 28.9 pg (26.0-34.0); MCHC 33.9 g/dL (28.0-37.0); MCV 85.5 fL (80.0-100.0); MONOCYTES 7.7 % (1.0-8.0); PLATELET COUNT 339 thou/uL (150-400); POLYS 55.8 % (36.0-66.0); RBC 4.79 mil/uL (4.20-5.00); RDW 16.2 % (10.5-14.5); WBC 5.8 thou/uL (4.0-11.0)
[2021-03-16 08:18] LABS: ANION GAP 8 mmol/L (7-16); BUN 7 mg/dL (7-18); CALCIUM 8.1 mg/dL (8.5-10.1); CHLORIDE 107 mmol/L (98-107); CO2 28 mmol/L (21-32); CREATININE 0.7 mg/dL (0.6-1.0); GLUCOSE 91 mg/dL (74-106); POTASSIUM 3.4 mmol/L (3.5-5.1); SODIUM 143 mmol/L (136-145)
[2021-03-16 08:24] LABS: ALBUMIN 3.2 g/dL (3.4-5.0); DIRECT BILIRUBIN < 0.1 mg/dL (<0.1-0.2); LIPASE 51 U/L (73-393); SGOT 11 U/L (15-37); SGPT 14 U/L (14-59); TOTAL BILIRUBIN 0.2 mg/dL (0.2-1.0); TOTAL PROTEIN 7.3 g/dL (6.4-8.2)
[2021-03-16] MEDS ORDERED: ZOFRAN ODT4 MG PO (10:29)
[2021-03-16 11:00] VITALS: BP 136/94
== END 2021-03-16 11:00 | disposition home or self-care (01) ==
LOC: ER 07:07
PROVIDERS: Emergency Medicine
DX: R11.2 Nausea with vomiting, unspecified (principal); I10 Essential (primary) hypertension; F10.10 Alcohol abuse, uncomplicated; F17.210 Nicotine dependence, cigarettes, uncomplicated

== ENCOUNTER 2021-03-28 19:06 | Emergency (ER) | payer OTHER ==
[~2021-03-28] VITALS: Ht 157.5 cm; Wt 68.0 kg
--- NOTE | ~2021-03-28 | EMS ---
[facility] [address] [place] [address] EMS Patient Care Report Name: KASSANDRA POPE Room #: DEP Sonny#: [id number] Admission: 03/28/21 Attend Phys: Discharge: 03/28/21 Date of : [birth year] Report #: [id number] THIS REPORT FOR: //name// Report Transmitted: 03/29/2021 13:26 EMS Care Summary [place], [place]/[facility] Incident [id number] @ 03/28/2021 18:29 Incident Location [address] [place], [place] [id number] Patient KASSANDRA POPE Female, 45 Years 1975 Patient Address [address] [place], [place] [id number] Patient History Hypertension (HTN),Anxiety,Alcohol Abuse, Patient Allergies No known allergies, Patient Medications Other, Amlodipine, Lexapro, Potassium, Chief Complaint Chest pain and dizziness Disposition Transported No Lights/[place] Dispatch Reason Chest Pain (Non-Traumatic) Transported To [facility] Narrative Initially dispatched with [facility] 30 for heart problems. Upon EMS arrival patient was found ambulating her apartment, slightly anxious, CAOx4. Patient [facility] [address] [place] [address] EMS Patient Care Report Name: KASSANDRA POPE Room #: DEP JarrodValdemar#: [id number] Admission: 03/28/21 Attend Phys: Discharge: 03/28/21 Date of : [birth year] Report #: [id number] stated that approximately an hour ago she had a sudden onset of chest pain under her left breast, dizziness, and nausea. Patient was assisted onto the stretcher, secured, and loaded into the ambulance. Patient initially described her pain as "dull", then later as "sharp", and then "like a pulled muscle". 12-lead EKG showed Sinus Rhythm. Patient was transported to [facility] without incident. Full report was given to RN prior to signing this document. Initial Vitals @18:48P: 104,CO: 5,SpO2: 100,FL Suspected: false @18:44P: 111,R: 18,BP: 136/88,GCS: 15,CO: 6,SpO2: 95,Revised Trauma: 12, @18:52P: 94,R: 18,BP: 143/94,GCS: 15,Glucose: 102,SpO2: 100,Revised Trauma: 12, @18:38P: 119,R: 18,BP: 142/84,Pain: 4/10,GCS: 15,CO: 7,SpO2: 97,Revised Trauma: 12, Assessments @18:36MENTAL:No Abnormalities,SKIN:No Abnormalities,HEENT:Head/Face: No Abnormalities,Eyes: No Abnormalities,Neck/Airway: No Abnormalities,LUNG SOUNDS:General: Nausea,ABDOMEN:General: Nausea,PELVIS//GI:EXTREMITIES:Left Arm: No Abnormalities,Right Arm: No Abnormalities,Left Leg: No Abnormalities,Right Leg: No Abnormalities,PULSE:NEURO:Other, Impression Chest Pain / Discomfort Procedures @18:36ALS AssessmentResponse: UnchangedSucceeded@18:47Saline Lock 10cc (18 ga) Site: Antecubital-LeftResponse: UnchangedSucceeded@18:4812-Lead ECGResponse: UnchangedSucceeded Timeline 18:27,Call Received 18:27,Dispatch Notified 18:29,Dispatched 18:29,En Route 18:34,On Scene 18:36,At Patient 18:36,ALS Assessment,Response: UnchangedSucceeded, 18:38,BP: 142/84 M,PULSE: 119,RR: 18 R,SPO2: 97 Ox,ETCO2: ,BG: ,PAIN: 4,GCS: 15, 18:44,BP: 136/88 M,PULSE: 111,RR: 18 R,SPO2: 95 Ox,ETCO2: ,BG: ,PAIN: ,GCS: 15, 18:47,Saline Lock 10cc 18 ga Site: Antecubital-Left,Response: UnchangedSucceeded, 18:48,12-Lead ECG,Response: UnchangedSucceeded, 18:48,BP: / M,PULSE: 104,RR: R,SPO2: 100 Ox,ETCO2: ,BG: ,PAIN: ,GCS: , 18:49,Depart Scene 18:52,BP: 143/94 M,PULSE: 94,RR: 18 R,SPO2: 100 Ox,ETCO2: ,B,PAIN: ,GCS: [facility] [address] [place] [address] EMS Patient Care Report Name: DESWYATTKASSANDRA Room #: DEP DIMITRI Dennis#: [id number] Admission: 03/28/21 Attend Phys: Discharge: 03/28/21 Date of : [birth year] Report #: [id number] 15, 19:02,At Destination 19:12,Call Closed Disclaimer v1.1 Copyright 2020 [employer] This EMS Care Summary contains data elements from the applicable legal record (which may be displayed differently). It is designed to provide pertinent information for the following purposes: continuity of care, clinical quality, and state data reporting. The complete legal record is available to ED staff and administrators of the receiving hospital in [employer] Patient Tracker. All data is provided "as is."
[2021-03-28 19:07] VITALS: BP 153/97
[2021-03-28 19:34] LABS: ABSOLUTE NEUTROPHILS 2.5 thou/uL (1.4-8.2); BASOPHILS 1.7 % (0.0-2.0); EOSINOPHILS 1.4 % (0.0-3.0); HEMATOCRIT 38.4 % (37.0-47.0); HEMOGLOBIN 13.2 gm/dL (12.0-15.0); LYMPHOCYTES 46.6 % (24.0-44.0); MCHC 34.2 g/dL (28.0-37.0); MCV 84.8 fL (80.0-100.0); MONOCYTES 8.4 % (1.0-8.0); PLATELET COUNT 352 thou/uL (150-400); POLYS 41.9 % (36.0-66.0); RBC 4.53 mil/uL (4.20-5.00); RDW 16.6 % (10.5-14.5)
[2021-03-28 19:37] LABS: ANION GAP 7 mmol/L (7-16); BUN 9 mg/dL (7-18); CALCIUM 8.6 mg/dL (8.5-10.1); CHLORIDE 106 mmol/L (98-107); CO2 28 mmol/L (21-32); CREATININE 0.8 mg/dL (0.6-1.0); GLUCOSE 92 mg/dL (74-106); POTASSIUM 3.3 mmol/L (3.5-5.1); SODIUM 141 mmol/L (136-145)
[2021-03-28 19:47] LABS: ALBUMIN 3.2 g/dL (3.4-5.0); LIPASE 76 U/L (73-393); SGOT 18 U/L (15-37); SGPT 19 U/L (14-59); TOTAL BILIRUBIN 0.1 mg/dL (0.2-1.0); TOTAL PROTEIN 7.1 g/dL (6.4-8.2); TROPONIN-I <0.06 ng/mL (<0.06)
--- NOTE | 2021-03-29 07:17 | EKG ---
[place] [address] [facility] [place] [address] ELECTROCARDIOGRAM REPORT Name: KASSANDRA POPE Palmer Room #: [facility]#: [id number] Admission: 03/28/21 Attend Phys: Discharge: 03/28/21 Date of : [birth year] Report #: [id number] [facility] ED Test Date: 2021-03-28 Test Time: 19:15:47 Pat Name: KASSANDRA POPE Department: Room: Gender: F Auto Club Safety Program Coordinator: GINO ANDERSEN : 1975 Requested By: Binu Mcdowell Order Number: [id number] MD: Juan Jose De Oliveira Measurements Intervals [place] Rate: 79 P: 87 [place]: 122 QRS: 34 QRSD: 71 T: 25 QT: 390 QTc: 448 Interpretive Statements Sinus rhythm Biatrial enlargement Compared to ECG 01/14/2021 05:55:18 No significant changes Electronically Signed On 03-29-2021 7:16:57 CDT by Juan Jose De Oliveira [email or web address] <ELECTRONICALLY SIGNED> By: Juan Jose De Oliveira MD, [facility] 03/29/21 0716 191 14 Juan Jose De Oliveira MD, FACC /EPI
== END 2021-03-28 19:58 | disposition home or self-care (01) ==
LOC: ER 19:06
PROVIDERS: Emergency Medicine
DX: R07.89 Other chest pain (principal); F41.9 Anxiety disorder, unspecified; I10 Essential (primary) hypertension; F17.210 Nicotine dependence, cigarettes, uncomplicated; Z79.82 Long term (current) use of aspirin; Z79.899 Other long term (current) drug therapy

== ENCOUNTER 2021-03-30 14:20 | Emergency (ER) | payer OTHER ==
[~2021-03-30] VITALS: Ht 157.5 cm; Wt 68.0 kg
[2021-03-30 14:22] VITALS: BP 136/86
[2021-03-30] MEDS ORDERED: MOBIC7.5 MG PO (16:11)
[2021-03-30] MEDS ORDERED: ZOFRAN ODT4 MG PO (16:11)
== END 2021-03-30 16:11 | disposition home or self-care (01) ==
LOC: ER 14:20
DX: R51.9 Headache, unspecified (principal); R11.2 Nausea with vomiting, unspecified; R68.83 Chills (without fever); M79.10 Myalgia, unspecified site; R05 Cough; F41.9 Anxiety disorder, unspecified; I10 Essential (primary) hypertension; F17.210 Nicotine dependence, cigarettes, uncomplicated; Z20.822 Contact with and (suspected) exposure to COVID-19; Z79.899 Other long term (current) drug therapy; Z79.82 Long term (current) use of aspirin

== ENCOUNTER 2021-04-04 15:43 | Emergency (ER) | payer OTHER ==
[~2021-04-04] VITALS: Ht 157.5 cm; Wt 68.0 kg
[~2021-04-04 15:43] MED LIST changes: +MOBIC7.5 MG PO
[2021-04-04 17:06] VITALS: BP 140/82
== END 2021-04-04 17:06 | disposition home or self-care (01) ==
LOC: ER 15:43
DX: Z20.822 Contact with and (suspected) exposure to COVID-19 (principal); F41.9 Anxiety disorder, unspecified; I10 Essential (primary) hypertension; F17.210 Nicotine dependence, cigarettes, uncomplicated; Z79.82 Long term (current) use of aspirin

== ENCOUNTER 2021-04-08 04:15 | Emergency (ER) | payer OTHER ==
[~2021-04-08] VITALS: Ht 157.5 cm; Wt 68.0 kg
[2021-04-08] MEDS ORDERED: [UNRECOGNIZED DRUG - OTHER] (04:34)
[2021-04-08] MEDS ORDERED: ZOFRAN ODT4 MG PO (07:01)
[2021-04-08 09:06] VITALS: BP 135/68
== END 2021-04-08 09:10 | disposition home or self-care (01) ==
LOC: ER 04:15
DX: R42 Dizziness and giddiness (principal); F10.129 Alcohol abuse with intoxication, unspecified; R11.0 Nausea; Y90.9 Presence of alcohol in blood, level not specified

== ENCOUNTER 2021-04-19 04:45 | Emergency (ER) | payer OTHER ==
[~2021-04-19] VITALS: Ht 157.5 cm; Wt 72.6 kg
[~2021-04-19 04:45] MED LIST changes: +[UNRECOGNIZED DRUG - OTHER]
[2021-04-19 06:04] VITALS: BP 134/94
== END 2021-04-19 06:04 | disposition home or self-care (01) ==
LOC: ER 04:45
DX: F10.980 Alcohol use, unspecified with alcohol-induced anxiety disorder (principal); R11.0 Nausea; I10 Essential (primary) hypertension; F41.9 Anxiety disorder, unspecified; F17.210 Nicotine dependence, cigarettes, uncomplicated; Z79.899 Other long term (current) drug therapy; Y90.9 Presence of alcohol in blood, level not specified

== ENCOUNTER 2021-05-15 14:15 | Emergency (ER) | payer OTHER ==
[~2021-05-15] VITALS: Ht 157.5 cm; Wt 72.6 kg
[2021-05-15 16:01] LABS: HEMATOCRIT 39.7 % (37.0-47.0); HEMOGLOBIN 13.3 gm/dL (12.0-15.0); MCH 28.5 pg (26.0-34.0); MCHC 33.4 g/dL (28.0-37.0); MCV 85.2 fL (80.0-100.0); PLATELET COUNT 352 thou/uL (150-400); RBC 4.66 mil/uL (4.20-5.00); RDW 16.7 % (10.5-14.5); WBC 9.7 thou/uL (4.0-11.0)
[2021-05-15 16:15] LABS: ALBUMIN 3.3 g/dL (3.4-5.0); TOTAL BILIRUBIN 0.2 mg/dL (0.2-1.0); TOTAL PROTEIN 7.4 g/dL (6.4-8.2)
[2021-05-15 16:33] LABS: URINE BILIRUBIN NEGATIVE (Negative); URINE BLOOD 1+ (Negative); URINE CLARITY CLEAR; URINE COLOR YELLOW; URINE GLUCOSE-RANDOM* NEGATIVE (Negative); URINE KETONES NEGATIVE (Negative); URINE LEUKOCYTES-REFLEX NEGATIVE (Negative); URINE NITRITE-REFLEX NEGATIVE (Negative); URINE PROTEIN (DIPSTICK) NEGATIVE (Negative); URINE UROBILINOGEN 0.2 E.U./dl (0.2-1.0)
[2021-05-15 16:41] LABS: SQUAMOUS >10 Many /LPF (0-3)
[2021-05-15 16:42] LABS: BACTERIA-REFLEX None Seen /HPF (None Seen); CASTS None Seen /LPF (None Seen); CRYSTALS None Seen /LPF (None Seen); URINE RBC 1-2 Rare /HPF (NONE SEEN); URINE WBC-REFLEX 0-5 Rare /HPF (0-5)
[2021-05-15 16:49] LABS: ABSOLUTE NEUTROPHILS 5.3 thou/uL (1.4-8.2)
[2021-05-15 16:50] LABS: ANISOCYTOSIS 1+
[2021-05-15 18:16] VITALS: BP 134/85
--- NOTE | 2021-05-16 07:16 | EKG ---
[place] [address] [facility] [place] [address] ELECTROCARDIOGRAM REPORT Name: KASSANDRA POPE Palmer Room #: [facility]#: [id number] Admission: 05/15/21 Attend Phys: Discharge: 05/15/21 Date of : [birth year] Report #: [id number] [facility] ED Test Date: 2021-05-15 Test Time: 15:33:46 Pat Name: KASSANDRA POPE Department: Room: Gender: F Senior Security Architect: TEO : 1975 Requested By: Alisa Alcazar Order Number: [id number] MD: Juan Jose De Oliveira Measurements Intervals [place] Rate: 84 P: 75 [place]: 121 QRS: 36 QRSD: 65 T: 23 QT: 372 QTc: 440 Interpretive Statements Sinus rhythm Biatrial enlargement Compared to ECG 03/28/2021 19:15:47 No significant changes Electronically Signed On 05-16-2021 7:16:02 CDT by Juan Jose De Oliveira [email or web address] <ELECTRONICALLY SIGNED> By: Juan Jose De Oliveira MD, [facility] 05/16/21 0716 1533 1533 Juan Jose De Oliveira MD, FACC /EPI
== END 2021-05-15 18:18 | disposition home or self-care (01) ==
LOC: ER 14:15
PROVIDERS: Physician Assistant
DX: N20.0 Calculus of kidney (principal); N83.202 Unspecified ovarian cyst, left side; R11.2 Nausea with vomiting, unspecified; R19.7 Diarrhea, unspecified; F41.9 Anxiety disorder, unspecified; I10 Essential (primary) hypertension; F17.210 Nicotine dependence, cigarettes, uncomplicated; Z79.82 Long term (current) use of aspirin; Z79.899 Other long term (current) drug therapy

== ENCOUNTER 2021-06-05 04:14 | Emergency (ER) | payer OTHER ==
[~2021-06-05] VITALS: Ht 157.5 cm; Wt 72.6 kg
[2021-06-05 04:22] VITALS: BP 110/75
[2021-06-08] MEDS ORDERED: PREDNISONE 20 M20 M1 PO (11:59)
== END 2021-06-05 06:50 | disposition home or self-care (01) ==
LOC: ER 04:14
DX: J02.9 Acute pharyngitis, unspecified (principal); I10 Essential (primary) hypertension; F10.10 Alcohol abuse, uncomplicated; F17.210 Nicotine dependence, cigarettes, uncomplicated

== ENCOUNTER → 2021-06-08 | Emergency (ER) | payer OTHER ==
[~2021-06-08] VITALS: Ht 157.5 cm; Wt 72.6 kg
[~2021-06-08] MED LIST changes: +PREDNISONE 20 M20 M1 PO
[2021-06-08 11:01] VITALS: BP 132/89
== END ==
LOC: ER 10:57
DX: J20.9 Acute bronchitis, unspecified (principal); F17.210 Nicotine dependence, cigarettes, uncomplicated

== ENCOUNTER 2021-06-10 06:11 | Emergency (ER) | payer OTHER ==
[~2021-06-10] VITALS: Ht 157.5 cm; Wt 72.6 kg
[2021-06-10 06:15] VITALS: BP 122/80
[2021-06-14] MEDS ORDERED: AMOXICILLIN500 M1 PO ×2 (20:30→20:57)
== END 2021-06-10 09:18 | disposition left against medical advice (07) ==
LOC: ER 06:11
DX: R09.89 Other specified symptoms and signs involving the circulatory and respiratory systems (principal); Z53.21 Procedure and treatment not carried out due to patient leaving prior to being seen by health care provider

== ENCOUNTER 2021-06-12 22:54 | Emergency (ER) | payer OTHER ==
[~2021-06-12] VITALS: Ht 157.5 cm; Wt 72.6 kg
[2021-06-12 23:57] VITALS: BP 112/78
--- NOTE | 2021-06-13 08:10 | EKG ---
[place] [address] [facility] [place] [address] ELECTROCARDIOGRAM REPORT Name: KASSANDRA POPE Palmer Room #: [facility] [id number] Admission: 06/12/21 Attend Phys: Discharge: 06/13/21 Date of : [birth year] Report #: [id number] [facility] ED Test Date: 2021-06-12 Test Time: 23:23:09 Pat Name: KASSANDRA POPE Department: Room: Gender: F Spray Drier Operator: SANTOSH : 1975 Requested By: Binu Mcdowell Order Number: [id number] MD: Juan Jose De Oliveira Measurements Intervals [place] Rate: 93 P: 76 DC: 121 QRS: 45 QRSD: 67 T: 35 QT: 353 QTc: 440 Interpretive Statements Sinus rhythm Biatrial enlargement Compared to ECG 05/15/2021 15:33:46 No significant changes Electronically Signed On 06-13-2021 8:10:39 CDT by Juan Jose De Oliveira [email or web address] <ELECTRONICALLY SIGNED> By: Juan Jose De Oliveira MD, [facility] 06/13/21 0810 2323 2323 Juan Jose De Oliveira MD, FACC /EPI
[2021-06-14] MEDS ORDERED: AMOXICILLIN500 M1 PO ×2 (20:30→20:57)
== END 2021-06-13 00:12 | disposition home or self-care (01) ==
LOC: ER 22:54
DX: R11.0 Nausea (principal); R00.2 Palpitations; I10 Essential (primary) hypertension; T50.905A Adverse effect of unspecified drugs, medicaments and biological substances, initial encounter; Y92.89 Other specified places as the place of occurrence of the external cause

== ENCOUNTER 2021-06-14 19:33 | Emergency (ER) | payer OTHER ==
[~2021-06-14] VITALS: Ht 157.5 cm; Wt 72.6 kg
[2021-06-14] MEDS ORDERED: AMOXICILLIN500 M1 PO ×3 (20:30→20:57)
[2021-06-14 21:03] VITALS: BP 132/91
== END 2021-06-14 20:30 | disposition home or self-care (01) ==
LOC: ER 19:33
DX: H66.91 Otitis media, unspecified, right ear (principal); R51.9 Headache, unspecified; J02.9 Acute pharyngitis, unspecified; F41.9 Anxiety disorder, unspecified; I10 Essential (primary) hypertension; F17.210 Nicotine dependence, cigarettes, uncomplicated; Z79.82 Long term (current) use of aspirin; Z79.899 Other long term (current) drug therapy

== ENCOUNTER 2021-06-14 23:47 | Emergency (ER) | payer OTHER ==
[~2021-06-14] VITALS: Ht 157.5 cm; Wt 72.6 kg
[~2021-06-14 23:47] MED LIST changes: +AMOXICILLIN500 M1 PO
[2021-06-15 00:03] VITALS: BP 160/93
--- NOTE | 2021-06-16 08:16 | EKG ---
[place] [address] [facility] [place] [address] ELECTROCARDIOGRAM REPORT Name: KASSANDRA POPE Palmer Room #: [facility]#: [id number] Admission: 06/14/21 Attend Phys: Discharge: 06/15/21 Date of : [birth year] Report #: [id number] [facility] ED Test Date: 2021-06-15 Test Time: 00:13:45 Pat Name: KASSANDRA POPE Department: Room: Gender: F Alterations Supervisor: JUDSON : 1975 Requested By: Binu Mcdowell Order Number: [id number] MD: Juan Jose De Oliveira Measurements Intervals [place] Rate: 94 P: 79 [place]: 121 QRS: 38 QRSD: 73 T: 9 QT: 350 QTc: 438 Interpretive Statements Sinus rhythm Consider right atrial enlargement Compared to ECG 06/12/2021 23:23:09 No significant changes Electronically Signed On 06-16-2021 8:15:49 CDT by Juan Jose De Oliveira [email or web address] <ELECTRONICALLY SIGNED> By: Juan Jose De Oliveira MD, [facility] 06/16/21 0815 0013 0013 Juan Jose De Oliveira MD, FACC /EPI
== END 2021-06-15 00:23 | disposition home or self-care (01) ==
LOC: ER 23:47
DX: T36.0X5A Adverse effect of penicillins, initial encounter (principal); F41.9 Anxiety disorder, unspecified; F17.210 Nicotine dependence, cigarettes, uncomplicated; I10 Essential (primary) hypertension; Z79.82 Long term (current) use of aspirin; Z79.899 Other long term (current) drug therapy; Y92.89 Other specified places as the place of occurrence of the external cause

== ENCOUNTER 2021-07-12 04:28 | Emergency (ER) | payer OTHER ==
[~2021-07-12] VITALS: Ht 157.5 cm; Wt 72.6 kg
[2021-07-12 05:07] LABS: ABSOLUTE NEUTROPHILS 2.6 thou/uL (1.4-8.2); BASOPHILS 1.5 % (0.0-2.0); EOSINOPHILS 1.1 % (0.0-3.0); HEMATOCRIT 39.4 % (37.0-47.0); HEMOGLOBIN 13.1 gm/dL (12.0-15.0); LYMPHOCYTES 49.4 % (24.0-44.0); MCH 28.3 pg (26.0-34.0); MCHC 33.1 g/dL (28.0-37.0); MCV 85.4 fL (80.0-100.0); MONOCYTES 6.5 % (1.0-8.0); PLATELET COUNT 297 thou/uL (150-400); POLYS 41.5 % (36.0-66.0); RBC 4.62 mil/uL (4.20-5.00); RDW 15.2 % (10.5-14.5); WBC 6.2 thou/uL (4.0-11.0)
[2021-07-12 05:11] LABS: URINE BILIRUBIN NEGATIVE (Negative); URINE BLOOD 1+ (Negative); URINE CLARITY CLEAR; URINE COLOR YELLOW; URINE GLUCOSE-RANDOM* NEGATIVE (Negative); URINE KETONES NEGATIVE (Negative); URINE LEUKOCYTES-REFLEX TRACE (Negative); URINE NITRITE-REFLEX NEGATIVE (Negative); URINE PROTEIN (DIPSTICK) NEGATIVE (Negative); URINE UROBILINOGEN 0.2 E.U./dl (0.2-1.0)
[2021-07-12 05:11] LABS: CALCIUM 8.6 mg/dL (8.5-10.1); POTASSIUM 3.6 mmol/L (3.5-5.1)
[2021-07-12 05:17] LABS: ALBUMIN 3.3 g/dL (3.4-5.0); SALICYLATE 3.3 mg/dL (2.8-20.0); TOTAL BILIRUBIN 0.1 mg/dL (0.2-1.0); TOTAL PROTEIN 7.5 g/dL (6.4-8.2)
[2021-07-12 05:19] LABS: AMP/METHAMP Negative (Negative); BARBITURATES Negative (Negative); BENZODIAZEPINES Negative (Negative); COCAINE Negative (Negative); METHADONE Negative (Negative); OPIATES Negative (Negative); PCP Negative (Negative)
[2021-07-12 05:41] LABS: BACTERIA-REFLEX 1-9 Few /HPF (None Seen); CASTS None Seen /LPF (None Seen); CRYSTALS None Seen /LPF (None Seen); MUCUS None Seen strn/LPF (None Seen); SQUAMOUS 0-3 Few /LPF (0-3); URINE RBC 1-2 Rare /HPF (NONE SEEN); URINE WBC-REFLEX None Seen /HPF (0-5)
--- NOTE | 2021-07-12 07:48 | EKG ---
[place] [address] [facility] [address] ELECTROCARDIOGRAM REPORT Name: KASSANDRA POPE Palmer Room #: [facility]#: [id number] Admission: 07/12/21 Attend Phys: Discharge: Date of : [birth year] Report #: [id number] [facility] ED Test Date: 2021-07-12 Test Time: 07:25:24 Pat Name: KASSANDRA POPE Department: Room: Gender: F Design Lead: SHONA : 1975 Requested By: Terrence Gorman Order Number: [id number] MD: Juan Jose De Oliveira Measurements Intervals [place] Rate: 83 P: 78 MS: 114 QRS: 43 QRSD: 83 T: 28 QT: 395 QTc: 465 Interpretive Statements Sinus rhythm Borderline short [place] interval Consider right atrial enlargement Compared to ECG 06/15/2021 00:13:45 No significant changes Electronically Signed On 07-12-2021 7:48:18 CDT by Juan Jose De Oliveira [email or web address] <ELECTRONICALLY SIGNED> By: Juan Jose De Oliveira MD, [facility] 07/12/21 0748 0725 0725 Juan Jose De Oliveira MD, [facility] /EPI
[2021-07-12 07:49] VITALS: BP 147/87
== END 2021-07-12 08:00 | disposition home or self-care (01) ==
LOC: ER 04:28
PROVIDERS: Emergency Medicine
DX: R45.851 Suicidal ideations (principal); Z20.822 Contact with and (suspected) exposure to COVID-19; F41.9 Anxiety disorder, unspecified; I10 Essential (primary) hypertension; F17.210 Nicotine dependence, cigarettes, uncomplicated; Z79.82 Long term (current) use of aspirin; Z79.899 Other long term (current) drug therapy

== ENCOUNTER → 2021-07-28 | Outpatient (CLI) | payer OTHER ==
[2021-07-28 10:59] LABS: ABSOLUTE NEUTROPHILS 3.2 thou/uL (1.4-8.2); BASOPHILS 0.7 % (0.0-2.0); EOSINOPHILS 0.6 % (0.0-3.0); HEMATOCRIT 43.7 % (37.0-47.0); HEMOGLOBIN 14.5 gm/dL (12.0-15.0); LYMPHOCYTES 42.7 % (24.0-44.0); MCH 28.7 pg (26.0-34.0); MCHC 33.2 g/dL (28.0-37.0); MCV 86.5 fL (80.0-100.0); MONOCYTES 5.6 % (1.0-8.0); PLATELET COUNT 443 thou/uL (150-400); POLYS 50.4 % (36.0-66.0); RBC 5.06 mil/uL (4.20-5.00); WBC 6.4 thou/uL (4.0-11.0)
[2021-07-28 11:15] LABS: % SATURATION 16 % (20-39); IRON 65 ug/dL (50-170); TIBC 395 ug/dL (250-450)
[2021-07-28 11:16] LABS: ALBUMIN 3.8 g/dL (3.4-5.0); CALCIUM 9.6 mg/dL (8.5-10.1); CREATININE 0.9 mg/dL (0.6-1.0); POTASSIUM 4.3 mmol/L (3.5-5.1); TOTAL BILIRUBIN 0.4 mg/dL (0.2-1.0)
== END ==
LOC: LAB 08:06
PROVIDERS: ATTEND Family Medicine
DX: R53.83 Other fatigue (principal); E55.9 Vitamin D deficiency, unspecified; D50.9 Iron deficiency anemia, unspecified; E53.8 Deficiency of other specified B group vitamins

== ENCOUNTER 2021-09-09 01:54 | Emergency (ER) | payer OTHER ==
[~2021-09-09] VITALS: Ht 157.5 cm; Wt 72.6 kg
[2021-09-09 02:10] LABS: URINE BILIRUBIN NEGATIVE (Negative); URINE BLOOD 1+ (Negative); URINE CLARITY SL CLOUDY; URINE COLOR YELLOW; URINE GLUCOSE-RANDOM* NEGATIVE (Negative); URINE KETONES NEGATIVE (Negative); URINE LEUKOCYTES-REFLEX NEGATIVE (Negative); URINE NITRITE-REFLEX NEGATIVE (Negative); URINE PROTEIN (DIPSTICK) NEGATIVE (Negative); URINE SPECIFIC GRAVITY 1.025 (1.005-1.035); URINE UROBILINOGEN 0.2 E.U./dl (0.2-1.0)
[2021-09-09 02:26] LABS: SQUAMOUS >10 Many /LPF (0-3)
[2021-09-09 02:27] LABS: BACTERIA-REFLEX 1-9 Few /HPF (None Seen); CASTS None Seen /LPF (None Seen); CRYSTALS None Seen /LPF (None Seen); MUCUS 0-3 Light strn/LPF (None Seen); URINE RBC 3-10 Few /HPF (NONE SEEN); URINE WBC-REFLEX 0-5 Rare /HPF (0-5)
[2021-09-09 03:00] LABS: HEMATOCRIT 38.8 % (37.0-47.0); HEMOGLOBIN 12.7 gm/dL (12.0-15.0); MCHC 32.7 g/dL (28.0-37.0); MCV 85.7 fL (80.0-100.0); PLATELET COUNT 385 thou/uL (150-400); RBC 4.53 mil/uL (4.20-5.00); RDW 15.8 % (10.5-14.5); WBC 8.1 thou/uL (4.0-11.0)
[2021-09-09 03:04] LABS: CALCIUM 8.8 mg/dL (8.5-10.1); CREATININE 0.7 mg/dL (0.6-1.0); POTASSIUM 3.8 mmol/L (3.5-5.1)
[2021-09-09 03:10] LABS: ALBUMIN 3.2 g/dL (3.4-5.0); TOTAL BILIRUBIN 0.4 mg/dL (0.2-1.0)
[2021-09-09] MEDS ORDERED: NAPROSYN500 MG PO ×2 (04:30→12:39)
[2021-09-09] MEDS ORDERED: NORCO5 PO ×4 (04:30→12:39)
[2021-09-09 04:33] VITALS: BP 131/78
[2021-09-09 04:38] LABS: ABSOLUTE NEUTROPHILS 3.8 thou/uL (1.4-8.2); ANISOCYTOSIS 1+; PLATELET ESTIMATE NORMAL; POIKILOCYTOSIS 1+; POLYCHROMASIA 1+
== END 2021-09-09 04:34 | disposition home or self-care (01) ==
LOC: ER 01:54
PROVIDERS: Emergency Medicine
DX: N20.0 Calculus of kidney (principal); F41.9 Anxiety disorder, unspecified; I10 Essential (primary) hypertension; F17.210 Nicotine dependence, cigarettes, uncomplicated; Z79.82 Long term (current) use of aspirin; Z79.899 Other long term (current) drug therapy

== ENCOUNTER 2021-10-02 06:21 | Emergency (ER) | payer OTHER ==
[~2021-10-02] VITALS: Ht 157.5 cm; Wt 76.2 kg
[~2021-10-02 06:21] MED LIST changes: +NAPROSYN500 MG PO; +NORCO5 PO
[2021-10-02 06:30] VITALS: BP 133/92
[2021-10-02] MEDS ORDERED: FLEXERIL PO (06:51)
== END 2021-10-02 07:00 | disposition home or self-care (01) ==
LOC: ER 06:21
DX: T14.8XXA Other injury of unspecified body region, initial encounter (principal); F41.9 Anxiety disorder, unspecified; I10 Essential (primary) hypertension; F17.210 Nicotine dependence, cigarettes, uncomplicated; Z79.899 Other long term (current) drug therapy; X58.XXXA Exposure to other specified factors, initial encounter; Y93.89 Activity, other specified; Y92.89 Other specified places as the place of occurrence of the external cause; Y99.8 Other external cause status